=== PATIENT | female | born 1960 | race Caucasian/White ===

== ENCOUNTER 2021-03-19 19:05 | Emergency (ER) | payer OTHER ==
[~2021-03-19] VITALS: Ht 160 cm; Wt 106.8 kg
[2021-03-19 19:17] VITALS: Ht 160 cm; Wt 106.8 kg
[2021-03-19] MEDS ORDERED: LEVOXYL125 MCG PO (19:21)
[2021-03-19] MEDS ORDERED: CYCLOBENZAPRINE10 MG PO (19:22)
[2021-03-19] MEDS ORDERED: GABAPENTIN300 MG PO (19:22)
[2021-03-19] MEDS ORDERED: TRAZODONE HCL100 MG PO (19:22)
[2021-03-19] MEDS ORDERED: MOBIC7.5 MG PO (19:23)
[2021-03-19] MEDS ORDERED: LEXAPRO20 MG PO (19:23)
[2021-03-19] MEDS ORDERED: PEPCID AC20 MG PO (19:23)
[2021-03-19] MEDS ORDERED: ULTRAM50 MG PO (19:24)
[2021-03-19] MEDS ORDERED: ABILIFY10 MG PO (19:25)
[2021-03-19 20:00] LABS: BASOPHILS 0.5 % (0-2); EOSINOPHILS 0.4 % (0-7); HEMATOCRIT 42.6 % (36.0-48.0); HEMOGLOBIN 14.1 g/dL (12-16); LYMPHOCYTES 4.4 % (15-50); MCH 30.5 pg (26.0-34.0); MCHC 33.1 g/dL (31.0-37.0); MEAN PLATELET VOLUME 9.5 fL (7.4-10.4); MONOCYTES 4.6 % (2-11); NEUTROPHILS 90.1 % (40-80); PLATELET COUNT 90 10x3/uL (130-400); RBC 4.62 10x6/uL (4.00-5.40); RDW 13.8 % (11.5-14.5); WBC 15.7 10x3/uL (4.8-10.8)
[2021-03-19 20:05] LABS: BILIRUBIN NEGATIVE (NEGATIVE); KETONE NEGATIVE (NEGATIVE); NITRITE NEGATIVE (NEGATIVE); UROBILINOGEN NORMAL mg/dL (< 2); WHITE CELLS - URINE >50 HPF (0-4)
[2021-03-19 20:06] LABS: BACTERIA MANY HPF (NONE SEEN)
[2021-03-19] MEDS ORDERED: OMNICEF300 MG PO (20:56)
[2021-03-19 21:05] LABS: ANION GAP 10.4 mmol/L (8-16); CALCIUM 9.9 mg/dL (8.5-10.1); CARBON DIOXIDE 29.5 mmol/L (21.0-32.0); CREATININE - SERUM 1.6 mg/dL (0.6-1.3); POTASSIUM - SERUM 3.9 mmol/L (3.5-5.1)
[2021-03-19 21:12] LABS: ALBUMIN 4.3 g/dL (3.4-5.0); BILIRUBIN - TOTAL 0.59 mg/dL (0.2-1.3); PROTEIN - SERUM 9.1 g/dL (6.4-8.2)
[2021-03-19 21:39] VITALS: BP 115/62
== END 2021-03-19 21:39 | disposition home or self-care (01) ==
LOC: D.ER 19:05
PROVIDERS: Student in an Organized Health Care Education/Training Program
DX: N12 Tubulo-interstitial nephritis, not specified as acute or chronic (principal); N18.9 Chronic kidney disease, unspecified; D72.829 Elevated white blood cell count, unspecified; G62.9 Polyneuropathy, unspecified; R50.9 Fever, unspecified; M79.10 Myalgia, unspecified site; R53.83 Other fatigue